=== PATIENT | female | born 1950 | race Caucasian/White ===

== ENCOUNTER → 2016-09-17 | Outpatient (CLI) | payer BC ==
[~2016-09-17] MED LIST: FLUO20CA16 PO; ROPI1TAB2 PO
--- NOTE | 2016-09-17 09:28 | RAD ---
Chest, 2 views, 09/17/2016: History: Chest congestion, productive cough The heart size and pulmonary vascularity are normal. There are minimal bibasilar linear opacities, similar to those seen on 05/06/2014. The findings suggest scarring versus recurrent atelectasis. No pulmonary consolidation is seen. There is no evidence of pleural fluid. Minimal spurring is present in the spine. IMPRESSION: Mild bibasilar linear scarring and/or atelectasis.
== END | disposition home or self-care (01) ==
LOC: DXRADRC 07:44
PROVIDERS: ATTEND Physician Assistant Medical
DX: J98.11 Atelectasis (principal); R05 Cough
CPT/HCPCS: 71020

== ENCOUNTER → 2017-03-18 | Outpatient (CLI) | payer BC ==
--- NOTE | 2017-03-18 14:24 | RAD ---
DATE: 03/18/2017 EXAM: MAMMO MONI SCREENING BILATERAL HISTORY: 6 screening. Positive family history for breast malignancy. COMPARISON: 09/11/2015 This study was interpreted with the benefit of Computerized Aided Detection (CAD). FINDINGS: Breast Density: HETERO The breast parenchyma Is heterogeneiously dense, which could reduce sensitivity of mammography. Breast parenchyma level C. There has not been a significant change in the appearance of the breasts compared to the previous exam IMPRESSION: Benign findings BI-RADS CATEGORY: 2 BENIGN FINDING(S) RECOMMENDED FOLLOW-UP: 12M 12 MONTH FOLLOW-UP PQRS compliance statement: Patient information was entered into a reminder system with a target due date for the next mammogram. Mammography is a sensitive method for finding small breast cancers, but it does not detect them all and is not a substitute for careful clinical examination. A negative mammogram does not negate a clinically suspicious finding and should not result in delay in biopsying a clinically suspicious abnormality. "Our facility is accredited by the [employer] Mammography [employer]."
== END | disposition home or self-care (01) ==
LOC: MAMMO 09:28
PROVIDERS: ATTEND Physician Assistant Medical
DX: Z12.31 Encounter for screening mammogram for malignant neoplasm of breast (principal)
CPT/HCPCS: 77063; G0202; 77067

== ENCOUNTER 2018-04-01 11:30 | Emergency (ER) | payer MEDICARE, BC ==
--- NOTE | 2018-04-01 11:41 | NUR ---
[place] [employer] NOTIFIED OF ANIMAL BITE. THEY WILL SEND AN OFFICER TO MAKE A REPORT. PHONE CALL MADE AT [phone].
[2018-04-01 11:43] VITALS: BP 151/66
[2018-04-01] MEDS ORDERED: AMOX1TAB61 PO (11:52)
[2018-04-01] MEDS ORDERED: DIPHTH,PERTUSS(ACELL),TET TOX 0.5 ML DISP.SYRIN. VAX IM ONE (12:15)
--- NOTE | 2018-04-01 12:31 | PHYS DOC ---
Past History Past Medical History: No Pertinent History Past Surgical History: No Surgical History Smoking: Non-smoker Alcohol Use: None Drug Use: None Adult General Chief Complaint Chief Complaint: ANIMAL BITE HPI HPI Patient is a 68-year-old female with an animal bite it was a dog bite to her left arm. Apparently her brother has an angry large tongue that does not like her and it bit her on the arm when she went over there to help him move. The dogs shots are up-to-date according to the brother. The police were here in the emergency room to take a report. Current Medications Current Medications Current Medications Medications (Trade) Dose Ordered Sig/Teresa Start Time Stop Time Status Last Admin Dose Admin Diphtheria/ Tetanus/Acell Pertussis (Boostrix) 0.5 ml ONCE ONCE 04/01/18 12:15 04/01/18 12:16 DC 04/01/18 12:25 0.5 ML Allergies Allergies Allergies Coded Allergies Type Severity Reaction Last Updated Verified No Known Drug Allergies 01/01/14 No Physical Exam Physical Exam Constitutional: Well developed, well nourished, no acute distress, non-toxic appearance. [] HENT: Normocephalic, atraumatic, bilateral external ears normal, oropharynx moist, no oral exudates, nose normal. [] Eyes: PERRLA, EOMI, conjunctiva normal, no discharge. [] Neck: Normal range of motion, no tenderness, supple, no stridor. [] Pulmonary: Normal respiratory effort no increased work of breathing no obvious chest wall trauma Extremities: There is noted a 4 cm ward shaped superficial laceration deep to the subcutaneous tissue above the elbow joint near the triceps area no foreign body was identified. The elbow is not involved Neurologic: Alert and oriented X 3, normal motor function, normal sensory function, no focal deficits noted. [] Psychologic: Affect normal, judgement normal, mood normal. [] Current Patient Data Vital Signs Vital Signs Date Time Temp Pulse Resp B/P (MAP) Pulse Ox O2 Delivery O2 Flow Rate FiO2 04/01/18 11:43 98.3 75 18 97 Room Air EKG EKG [] Radiology/Procedures Radiology/Procedures [] Course & Med Decision Making Course & Med Decision Making Pertinent Labs and Imaging studies reviewed. (See chart for details) []Laceration: Verbal consent obtained the wound was irrigated profusely no foreign body was identified lidocaine was used for anesthesia 4-0 nylon simple interrupted sutures total 4 cm in size was used to reapproximate the wound in a simple interrupted fashion patient tolerated well care instructions were given Tetanus was updated. Dragon Disclaimer Dragon Disclaimer This electronic medical record was generated, in whole or in part, using a voice recognition dictation system. Departure Departure: Impression: Primary Impression: Elevated blood pressure reading Additional Impression: Animal bite Disposition: HOME, SELF-CARE Condition: STABLE Patient Instructions: Animal Bite, [id number] Additional Instructions: get blood pressure checked in one month. Scripts Amoxicillin/Potassium Clav (AUGMENTIN 875-125 TABLET) 1 Each Tablet 1 TAB PO BID, #10 TAB Prov: TIFFANY WESLEY MD 04/01/18 Problem Qualifiers TIFFANY WESLEY MD Apr 01, 2018 12:31
== END 2018-04-01 12:26 | disposition home or self-care (01) ==
LOC: ER 11:30
DX: S51.012A Laceration without foreign body of left elbow, initial encounter (principal); I10 Essential (primary) hypertension; W54.0XXA Bitten by dog, initial encounter; Y93.89 Activity, other specified; Y92.89 Other specified places as the place of occurrence of the external cause; Y99.8 Other external cause status
CPT/HCPCS: 12002; 90471; 90715; 99283-25

== ENCOUNTER 2018-04-12 09:06 | Emergency (ER) | payer MEDICARE, BC ==
[~2018-04-12] VITALS: Ht 167.6 cm; Wt 90.7 kg
[~2018-04-12 09:06] MED LIST changes: +AMOX1TAB61 PO
[2018-04-12 09:11] VITALS: BP 170/90
--- NOTE | 2018-04-12 09:31 | PHYS DOC ---
Past History Past Medical History: No Pertinent History Past Surgical History: No Surgical History Smoking: Non-smoker Alcohol Use: None Drug Use: None Adult General Chief Complaint Chief Complaint: SUTURE/STAPLE REMOVAL [facility] HPI 68-year-old female presents for suture removal. Patient had 7 sutures placed in her left elbow region 11 days ago. She tried and her PCP today for removal, but there were no appointments. She has had no complications with her sutures. They were originally placed after a dog bite that resulted in laceration. She denies fever or chills. Review of Systems Review of Systems Constitutional: Denies fever or chills [] Eyes: Denies change in visual acuity, redness, or eye pain [] HENT: Denies nasal congestion or sore throat [] Respiratory: Denies cough or shortness of breath [] Cardiovascular: No additional information not addressed in HPI [] GI: Denies abdominal pain, nausea, vomiting, bloody stools or diarrhea [] : Denies dysuria or hematuria [] Musculoskeletal: Denies back pain or joint pain [] Integument: Healing laceration left elbow[] Neurologic: Denies headache, focal weakness or sensory changes [] Endocrine: Denies polyuria or polydipsia [] All other systems were reviewed and found to be within normal limits, except as documented in this note. Allergies Allergies Allergies Coded Allergies Type Severity Reaction Last Updated Verified No Known Drug Allergies 01/01/14 No Physical Exam Physical Exam Constitutional: Well developed, well nourished, no acute distress, non-toxic appearance. [] HENT: Normocephalic, atraumatic, bilateral external ears normal, oropharynx moist, no oral exudates, nose normal. [] Eyes: PERRLA, EOMI, conjunctiva normal, no discharge. [] Neck: Normal range of motion, no tenderness, supple, no stridor. [] Cardiovascular:Heart rate regular rhythm, no murmur [] Lungs & Thorax: Bilateral breath sounds clear to auscultation [] Abdomen: Bowel sounds normal, soft, no tenderness, no masses, no pulsatile masses. [] Skin: 5 cm laceration of the left elbow with 7 sutures. 1.5 x 1.5 cm eschar in the center. Clean, dry, intact. No signs of infection.[] Back: No tenderness, no CVA tenderness. [] Extremities: No tenderness, no cyanosis, no clubbing, ROM intact, no edema. [] Neurologic: Alert and oriented X 3, normal motor function, normal sensory function, no focal deficits noted. [] Psychologic: Affect normal, judgement normal, mood normal. [] Current Patient Data Vital Signs Vital Signs Date Time Temp Pulse Resp B/P (MAP) Pulse Ox O2 Delivery O2 Flow Rate FiO2 04/12/18 09:11 98.2 90 18 98 Room Air EKG EKG [] Radiology/Procedures Radiology/Procedures [] Course & Med Decision Making Course & Med Decision Making Pertinent Labs and Imaging studies reviewed. (See chart for details) The patient's wound appears to be healing as expected. I did remove her sutures without complication. [] Dragon Disclaimer Dragon Disclaimer This electronic medical record was generated, in whole or in part, using a voice recognition dictation system. Departure Departure: Impression: Primary Impression: Visit for suture removal Disposition: HOME, SELF-CARE Condition: STABLE Patient Instructions: Suture Removal-CAT Isaacs DO Apr 12, 2018 09:31
== END 2018-04-12 09:31 | disposition home or self-care (01) ==
LOC: ER 09:06
DX: S51.012D Laceration without foreign body of left elbow, subsequent encounter (principal); X58.XXXD Exposure to other specified factors, subsequent encounter
CPT/HCPCS: 99281

== ENCOUNTER → 2021-01-15 | Outpatient (CLI) | payer MEDICARE, BC ==
[~2021-01-15] MED LIST changes: -ROPI1TAB2 PO; +ROPI1TAB4 PO
--- NOTE | 2021-01-15 10:46 | RAD ---
INDICATION: Screening for osteopenia/osteoporosis. Postmenopausal evaluation COMPARISON: None. TECHNIQUE: Bone densitometry was performed through the lumbar spine and proximal femur. IMPRESSION: Lumbar Spine: BMD: 1.18 T-Score: 0 Range: Normal Proximal Femur: BMD: 0.7 T-Score: -2.0 Range: Osteopenic World Health Organization Criteria for Bone Density: T-Score: > -1.0: Normal Range < -1.0 to -2.5: Osteopenic Range < -2.5: Osteoporotic Range Electronically signed by: Billy Hill MD (01/15/2021 10:44 AM) [id number]
--- NOTE | 2021-01-16 14:23 | RAD ---
EXAM: BILATERAL DIGITAL 3D SCREENING MAMMOGRAPHY. HISTORY: Routine mammographic screening. TECHNIQUE: Bilateral digital 3D and tomographic images were obtained in CC and MLO projections. Compu ter-aided detection was applied. COMPARISON: 03/18/2017, 09/11/2015. COMPOSITION: C. The breasts are heterogeneously dense, which may obscure small masses. FINDINGS: There are no suspicious masses, microcalcifications or architectural distortion. The parenc hymal pattern is stable. A few scattered calcifications are benign. BI-RADS CATEGORY 2: Benign. RECOMMENDATION: 1. Routine screening mammography in one year. If mammography demonstrates dense breast tissue (heterogenously dense or extremely dense, category C or D), which could hide abnormalities, and if other risk factors for breast cancer have been identifi ed, supplemental screening tests that may be suggested by the ordering physician may be of benefit. D ense breast tissue, in and of itself, is a relatively common condition. Therefore, this information i s not provided to cause undue concern, but rather to raise awareness and to promote discussion with t he referring physician regarding the presence of other risk factors, in addition to dense breast tiss ue. The results of this mammography examination is provided to the patient and referring physician. T he patient should contact their referring physician if any questions or concerns exist regarding this report. PQRS compliance statement - Patient information was entered into a reminder system with a target due date for the next mammogram. "Our facility is accredited by the [employer] Mammography [employer]." Electronically signed by: Duran Winn MD (01/16/2021 2:21 PM) [id number]
== END ==
LOC: MAMMO 09:57
PROVIDERS: ATTEND Physician Assistant Medical
DX: Z12.31 Encounter for screening mammogram for malignant neoplasm of breast (principal); M85.88 Other specified disorders of bone density and structure, other site; Z78.0 Asymptomatic menopausal state
CPT/HCPCS: 77063; 77067; 77080

== ENCOUNTER → 2021-10-23 | Outpatient (CLI) | payer MEDICARE, BC ==
--- NOTE | 2021-10-23 09:15 | RAD ---
EXAMINATION: US DPLX VENOUS EXTREMITY LOWER LT (LOWER EXTREMITY VENOUS ULTRASOUND) CLINICAL HISTORY: Left lower extremity pain. TECHNIQUE: Sonographic grayscale images obtained of the left lower extremity deep venous system with color flow Doppler, compression, and augmentation techniques as indicated. Images obtained and store d in a permanent archive. COMPARISON: None FINDINGS: No evidence of absent flow or incompressibility within the common femoral vein, femoral vein, or popl iteal vein. Visualized calf veins appear patent on limited evaluation. IMPRESSION: No evidence of left lower extremity DVT. Electronically signed by: Tan Tran DO (10/23/2021 9:13 AM) [facility]
== END ==
LOC: US 08:29
PROVIDERS: ATTEND Nurse Practitioner Family
DX: M79.662 Pain in left lower leg (principal)
CPT/HCPCS: 93971